=== PATIENT | male | born 1975 | race Caucasian/White ===

== ENCOUNTER 2022-03-20 08:06 | Emergency (ER) | payer BC, SELFPAY ==
[2022-03-20 08:10] VITALS: BP 179/98; PULSE 96; RESP 14; TEMP 36.7; O2SAT 98
[2022-03-20 08:32] LABS: Basophils Percent Auto 0.3 % (0.2-1.2); Eosinophils Absolute Auto 0.2 K/mm3 (0-0.3); Eosinophils Percent Auto 1.9 % (0-4.4); Hematocrit 43.2 % (42.0-52.0); Hemoglobin 14.4 g/dL (14.0-18.0); Immature Granulocyte Absolute 0.04 K/mm3 (0.00-0.031); Immature Granulocyte Percent A 0.3 % (0-0.5); Lymphocytes Absolute Auto 1.99 K/mm3 (0.9-3.2); Lymphocytes Percent Auto 16.2 % (18.3-44.2); Mean Corpuscular HGB Conc 33.3 g/dl (32-36); Mean Corpuscular Hemoglobin 27.1 pg (26-34); Mean Corpuscular Volume 81.2 fl (80-100); Mean Platelet Volume 10.8 fl (7.4-10.4); Monocytes Absolute Auto 0.7 K/mm3 (0.1-0.6); Monocytes Percent Auto 5.4 % (2.6-8.5); Neutrophils Absolute Auto 9.3 K/mm3 (1.3-6.7); Neutrophils Percent Auto 75.9 % (45.5-73.1); Platelet Count Result 268 k/mm3 (150-375); Red Blood Count 5.32 M/mm3 (4.6-6.20); White Blood Count 12.3 K/mm3 (4.5-10.0)
[2022-03-20 08:43] LABS: Anion Gap 12 mmol/L (8-16); Blood Urea Nitrogen 7 mg/dL (9-20); Calcium 9.1 mg/dL (8.4-10.2); Carbon Dioxide 23 mmol/L (22-30); Chloride 99 mmol/L (98-107); Estimated CRCL calculation 141 ml/min; Estimated Glomerular Filt Rate > 60; Glucose 165 mg/dL (65-110); Potassium 3.3 mmol/L (3.4-5.0); Sodium 134 mmol/L (137-145)
[2022-03-20] MEDS: CLINDAMYCIN 600 MG/D5W 50 ML 600 MG/50 ML PIGGYBACK 100 MG IVPB (08:46)
[2022-03-20] MEDS: KETOROLAC 15 MG/ML VIAL (*BKC) IV PUSH (08:46)
--- NOTE | 2022-03-20 09:15 | ED.SKABFB ---
HPI - Skin/Abscess/Foreign Bdy General Chief complaint: Skin/Abscess/Foreign Body Stated complaint: cheek infection Time Seen by Provider: 03/20/22 08:11 History of Present Illness HPI narrative: 46-year-old male presents with skin infection to his left cheek and right neck, has been ongoing for the last 3 to 4 days, did at some point drain, did not come in because he was hoping it'd get better, his mom finally forced him to come in. Denies any fevers or chills, does endorse some pain, has no issues with moving his eye or with his eyesight, no trouble with breathing. 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 Related Data Allergies Allergy/AdvReac Type Severity Reaction Status Date / Time No Known Allergies Allergy Verified 03/20/22 08:14 Review of Systems Review of Systems: CONST: No fever. HEENT: Painful rash to left cheek and right neck C/V: No chest pain RESP: No cough GI: No nausea or vomiting : No dysuria. M/S: No joint pain. SKIN: Painful rash as above NEURO: [No headache or focal numbness or weakness] PSYCH: [No depression] [facility] Past Medical History Medical History (Updated 03/20/22 @ 13:54 by Sandy Little MD) Abscess Surgical History Surgical History (Updated 03/20/22 @ 13:54 by Sandy Little MD) No significant past surgical history Exam Narrative: EXAMINATION OF ORGAN SYSTEMS/BODY AREAS: Constitutional: Vital signs per nursing GENERAL:[No acute distress, non-toxic appearing.] HEAD: Normal with no signs of head trauma. EYES: Painless EOMI, conjunctiva normal ENT: Lesion to left cheek without any fluctuance, tender to palpation, red indurated LUNGS: Nonlabored breathing. HEART: [Regular rate and rhythm] ABD: [Soft], non distended EXT: Normal range of motion SKIN: Painful indurated lesion left cheek and right neck NEURO: [Alert and oriented x 3. No gross focal sensory or strength deficits.] PSYCH: Normal affect Course Vital Signs Vital signs: Vital Signs Temperature 98.0 F 03/20/22 08:10 Pulse Rate 96 03/20/22 08:10 Respiratory Rate 14 03/20/22 08:10 Blood Pressure 179/98 H 03/20/22 08:10 Pulse Oximetry 98 03/20/22 08:10 Oxygen Delivery Room Air 03/20/22 08:10 Temperature 98.0 F 03/20/22 08:10 Pulse Rate 80 03/20/22 09:25 Respiratory Rate 19 03/20/22 09:25 Blood Pressure 123/88 03/20/22 09:25 Pulse Oximetry 97 03/20/22 09:25 Oxygen Delivery Room Air 03/20/22 08:10 MDM - Skin/Abscess/Foreign Bdy MDM Narrative Medical decision making narrative: MEDICAL DECISION MAKING AND COURSE IN THE ED WITH INTERPRETATION/REVIEW OF DIAGNOSTIC STUDIES: Electronic medical record was reviewed. Patient presented to the ED with complaint of painful skin rash. Vitals [were within acceptable limits]. Physical exam revealed area of tenderness and induration consistent with cellulitis, without fluctuance; no periorbital involvement; bedside ultrasound performed by myself of his left cheek and right neck which is consistent with cellulitis without any fluid collection. [Patient was given clindamycin here and a course to continue at home.] The patient is discharged home in stable condition. I have asked the patient to return to the emergency department for worsening pain, worsening and increasing size of skin infection, fevers/chills. The patient is instructed to follow up with [PCP] in [2] days. Patient verbalized understanding. Lab Data Result diagrams: 03/20/22 08:26 03/20/22 08:26 Labs: Lab Results 03/20/22 03/20/22 Range/Units 08:26 08:26 WBC 12.3 H (4.5-10.0) K/mm3 RBC 5.32 (4.6-6.20) M/mm3 Hgb 14.4 (14.0-18.0) g/dL Hct 43.2 (42.0-52.0) % MCV 81.2 (80-100) fl MCH 27.1 (26-34) pg MCHC 33.3 (32-36) g/dl RDW 14.0 (11.5-14.5) % Plt Count 268 (150-375) k/mm3 MPV 10.8 H (7.4-10.4) fl Immature Gran % (Auto) 0.3 (0-0.5) % Neut % (Auto) 75.9 H (45.5-73.1) % Lymph % (Auto)
--- NOTE | 2022-03-20 09:22 | PC.NURSE ---
Pt family concerned possible febrile. Checked temperature orally, and temperature was 98.0.
[2022-03-20 09:25] VITALS: BP 123/88; PULSE 80; RESP 19; O2SAT 97
--- NOTE | 2022-03-20 10:24 | PC.NURSE ---
pt. family member called stating pt. did not get a prescription for abx. RN attempted to contact pt. x3 no answer. RN spoke w/ pt. mother and educated pt. mother that pt. was given a printed prescription that can be taken to any pharmacy of choice to be filled. pt. mother states The prescription wasn't signed. RN educated pt. family that prescription was electronically signed.
== END 2022-03-20 09:25 | disposition home or self-care (01) ==
PROVIDERS: Emergency Provider Emergency Medicine
DX: L03.221 Cellulitis of neck (principal); L03.211 Cellulitis of face; L73.9 Follicular disorder, unspecified; Z86.14 Personal history of Methicillin resistant Staphylococcus aureus infection
CPT/HCPCS: 36415; 80048; 85025; 87040; 96365; 96375; 99284; J1885